=== PATIENT | female | born 1975 | race Caucasian/White ===

== ENCOUNTER → 2016-12-18 | Outpatient (CLI) | payer OTHER | END | disposition home or self-care (01) | LOC: CDC 11:35 | DX: R94.31 Abnormal electrocardiogram [ECG] [EKG] (principal) | CPT/HCPCS: 93000 ==

== ENCOUNTER 2017-01-11 09:49 | Emergency (ER) | payer OTHER ==
[~2017-01-11] VITALS: Ht 162.6 cm; Wt 68.9 kg
[2017-01-11] MEDS ORDERED: PROMETHAZINE12.5 M1 PO (12:37)
[2017-01-11] MEDS ORDERED: PEN-VEE K,VEET500 MG PO (12:37)
[2017-01-11] MEDS ORDERED: MOTRIN800 MG PO (12:37)
[2017-01-11 12:43] LABS: ADD MIUA? YES; BILIRUBIN NEGATIVE; BLOOD MODERATE; COLOR YELLOW ((YELLOW)); GLUCOSE (STRIP) NEGATIVE; KETONES NEGATIVE; LEUKOCYTES SMALL; NITRITE NEGATIVE; PROTEIN (STRIP) NEGATIVE; SPECIFIC GRAVITY 1.012 (1.000-1.030)
[2017-01-11 12:45] LABS: INTERNAL CONTROL VALID? YES
[2017-01-11 12:50] VITALS: BP 110/85
[2017-01-11 12:52] LABS: BACTERIA RARE /HPF; CALCIUM OXALATE CRYSTALS 1+ /HPF; EPITHELIAL CELLS 1+ /HPF; MUCUS TRACE /LPF; RED BLOOD CELLS 30-40 /HPF (0-5)
== END 2017-01-11 12:52 | disposition home or self-care (01) ==
LOC: EME 09:49 → EXP 09:49
PROVIDERS: Nurse Practitioner Family
DX: K02.9 Dental caries, unspecified (principal); K04.7 Periapical abscess without sinus; K86.1 Other chronic pancreatitis; F17.200 Nicotine dependence, unspecified, uncomplicated
CPT/HCPCS: 81003; 84703; 99281; 99284; Q0169

== ENCOUNTER 2017-01-13 10:03 | Emergency (ER) | payer OTHER ==
[~2017-01-13] VITALS: Ht 162.6 cm; Wt 69.0 kg
[~2017-01-13 10:03] MED LIST: MOTRIN800 MG PO; PEN-VEE K,VEET500 MG PO; PROMETHAZINE12.5 M1 PO
[2017-01-13] MEDS ORDERED: VIBRAMYCIN100 MG PO (10:32)
[2017-01-13] MEDS ORDERED: TYLENOL WITH C1 EACH PO (10:32)
[2017-01-13 10:52] VITALS: BP 111/71
== END 2017-01-13 10:54 | disposition home or self-care (01) ==
LOC: EME 10:03
DX: K02.9 Dental caries, unspecified (principal); K03.81 Cracked tooth; F17.200 Nicotine dependence, unspecified, uncomplicated
CPT/HCPCS: 99281; 99283

== ENCOUNTER 2017-01-15 08:51 | Emergency (ER) | payer OTHER ==
[~2017-01-15] VITALS: Ht 162.6 cm; Wt 70.0 kg
[~2017-01-15 08:51] MED LIST changes: +TYLENOL WITH C1 EACH PO; +VIBRAMYCIN100 MG PO
[2017-01-15] MEDS ORDERED: MOTRIN800 MG PO (11:05)
[2017-01-15] MEDS ORDERED: CLINDAMYCIN HC300 MG PO (11:05)
[2017-01-15 11:55] VITALS: BP 117/64
== END 2017-01-15 12:04 | disposition home or self-care (01) ==
LOC: EME 08:51
DX: K04.7 Periapical abscess without sinus (principal); K02.9 Dental caries, unspecified; F17.200 Nicotine dependence, unspecified, uncomplicated
CPT/HCPCS: 99281; 99283

== ENCOUNTER 2017-01-19 19:47 | Emergency (ER) | payer OTHER ==
[~2017-01-19] VITALS: Ht 162.6 cm; Wt 68.3 kg
[~2017-01-19 19:47] MED LIST changes: +CLINDAMYCIN HC300 MG PO
[2017-01-19 20:24] LABS: ADD MIUA? YES; BILIRUBIN NEGATIVE; BLOOD NEGATIVE; COLOR YELLOW ((YELLOW)); GLUCOSE (STRIP) NEGATIVE; KETONES NEGATIVE; LEUKOCYTES LARGE; NITRITE NEGATIVE; PROTEIN (STRIP) 30; UROBILINOGEN 0.2 MG/DL (0.2-1.0)
[2017-01-19 20:37] LABS: BACTERIA RARE /HPF; EPITHELIAL CELLS 1+ /HPF; MUCUS TRACE /LPF; RED BLOOD CELLS 0-5 /HPF (0-5); UCUL ADDED? YES
[2017-01-19 21:05] LABS: HEMATOCRIT 42.8 % (36.0-46.0); MCH 29.3 PG (29.0-34.0); MCHC 34.1 G/DL (30.0-36.0); MCV 85.9 FL (83-99); MEAN PLAT.VOLUME 10.3 uM^3 (9.5-12.4); PLATELET COUNT 137 K/uL (156-360); RBC DIS.WIDTH-CV 13.4 % (11.8-14.6); RBC DIS.WIDTH-SD 42.6 % (39-53); RED BLOOD COUNT 4.98 M/uL (3.80-5.20); WHITE BLOOD COUNT 6.4 K/uL (4.1-10.2)
[2017-01-19 21:14] LABS: CHLORIDE 106 mEq/L (99-109); POTASSIUM 3.7 mEq/L (3.7-5.4); SODIUM 138 mEq/L (136-147)
[2017-01-19 21:16] LABS: GLUCOSE 119 mg/dL (70-99)
[2017-01-19 21:17] LABS: ANION GAP 12 MEQ/L (2-14)
[2017-01-19 21:18] LABS: TOTAL BILIRUBIN 0.7 mg/dL (0.0-1.0)
[2017-01-19 21:20] LABS: ALKALINE PHOSPHATASE 84 IU/L (3-129); GFR ESTIMATE (CALCULATED) > 59 mL/min/
[2017-01-19 21:21] LABS: UREA NITROGEN (BUN) 9 mg/dL (9-23)
[2017-01-19 21:23] LABS: LIPASE 14 U/L (1.0-51.0)
[2017-01-19 21:29] LABS: QUANTITATIVE HCG < 4.0 MIU/ML
[2017-01-19] MEDS ORDERED: ZOFRAN ODT4 MG PO (21:47)
[2017-01-19] MEDS ORDERED: CLEOCIN300 MG PO (21:47)
[2017-01-19] MEDS ORDERED: MOTRIN800 MG PO (21:47)
[2017-01-19] MEDS ORDERED: PHENERGAN12.5 MG PR (21:59)
[2017-01-19 22:05] LABS: AMYLASE 39 IU/L (1-118)
[2017-01-19 22:56] VITALS: BP 134/86
== END 2017-01-19 23:07 | disposition home or self-care (01) ==
LOC: EME 19:47
PROC: 3E0T3BZ Introduction of Anesthetic Agent into Peripheral Nerves and Plexi, Percutaneous Approach (ICD-10-PCS; principal; 2017-01-19)
DX: K02.9 Dental caries, unspecified (principal); K08.89 Other specified disorders of teeth and supporting structures; F17.200 Nicotine dependence, unspecified, uncomplicated; Z88.2 Allergy status to sulfonamides
CPT/HCPCS: 80053; 81003; 82150; 83690; 84702; 85027; 87086; 99281; 99284; S0020

== ENCOUNTER 2017-02-22 19:48 | Inpatient (IN) | payer OTHER ==
[~2017-02-22] VITALS: Ht 162.6 cm; Wt 66.0 kg
[~2017-02-22 19:48] MED LIST changes: +CLEOCIN300 MG PO; +PHENERGAN12.5 MG PR; +ZOFRAN ODT4 MG PO
[2017-02-22 20:59] LABS: HEMATOCRIT 42.7 % (36.0-46.0); MCH 29.5 PG (29.0-34.0); MCHC 34.7 G/DL (30.0-36.0); MCV 85.2 FL (83-99); MEAN PLAT.VOLUME 9.6 uM^3 (9.5-12.4); PLATELET COUNT 139 K/uL (156-360); RBC DIS.WIDTH-CV 12.6 % (11.8-14.6); RBC DIS.WIDTH-SD 38.8 % (39-53); RED BLOOD COUNT 5.01 M/uL (3.80-5.20); WHITE BLOOD COUNT 6.4 K/uL (4.1-10.2)
[2017-02-22 21:07] LABS: CHLORIDE 107 mEq/L (99-109); POTASSIUM 3.1 mEq/L (3.7-5.4); SODIUM 140 mEq/L (136-147)
[2017-02-22 21:08] LABS: GLUCOSE 86 mg/dL (70-99)
[2017-02-22 21:10] LABS: ANION GAP 7 MEQ/L (2-14)
[2017-02-22 21:11] LABS: SERUM ETHYL ALCOHOL < 10 mg/dL
[2017-02-22 21:12] LABS: GFR ESTIMATE (CALCULATED) > 59 mL/min/
[2017-02-22 21:13] LABS: UREA NITROGEN (BUN) 6 mg/dL (9-23)
[2017-02-23 00:27] VITALS: BP 113/71
[2017-02-23] MEDS ORDERED: VYVANSE60 MG PO (00:28)
[2017-02-23] MEDS ORDERED: GABAPENTIN300 MG PO (00:29)
[2017-02-23] MEDS ORDERED: WELLBUTRIN100 MG PO (00:31)
[2017-02-23] MEDS ORDERED: ADVIL LIQUI-GE200 MG PO (00:33)
[2017-02-23] MEDS ORDERED: DISKETS40 MG PO (00:39)
[2017-02-23] MEDS ORDERED: METHADONE HCL40 MG PO (00:40)
[2017-02-23 07:52] VITALS: BP 105/72
[2017-02-23 15:35] VITALS: BP 114/60
[2017-02-24 07:52] VITALS: BP 117/56
[2017-02-24 15:53] VITALS: BP 126/69
[2017-02-25 08:15] VITALS: BP 108/63
[2017-02-25] MEDS ORDERED: BUPROPION HCL100 M1 PO (09:40)
== END 2017-02-25 12:40 | disposition other institution (70) | DRG 885 ==
LOC: EME 19:48 → 1WEST 22:45 → EDOF 22:45 → ENRESERV 23:51 → 1WEST 02-23 00:12
DX: F33.2 Major depressive disorder, recurrent severe without psychotic features (principal); R45.851 Suicidal ideations; F14.20 Cocaine dependence, uncomplicated; F11.20 Opioid dependence, uncomplicated; F17.200 Nicotine dependence, unspecified, uncomplicated; R63.4 Abnormal weight loss; F43.10 Post-traumatic stress disorder, unspecified
CPT/HCPCS: 80048; 85027; 90839; 97150 GO; 97165 GO; 99281; 99285; G0480